=== PATIENT | female | born 1995 | race Caucasian/White ===

== ENCOUNTER → 2023-07-09 | Outpatient (CLI) | payer OTHER | LOC: LAB SHORT 13:41 → LAB 13:41 | DX: Z34.03 Encounter for supervision of normal first pregnancy, third trimester (principal) | CPT/HCPCS: 87081; 87150 ==

== ENCOUNTER 2023-08-05 13:09 | Inpatient (IN) | payer OTHER ==
[2023-08-05] VITALS (14 sets, daily range): BP systolic 117–150; BP diastolic 70–93
[~2023-08-05] VITALS: Ht 167.6 cm; Wt 106.8 kg
[2023-08-05 13:49] LABS: BASOPHILS ABSOLUTE AUTO 0.03 K/mm3 (0.00-0.23); BASOPHILS PERCENT AUTO 0 % (0-2); EOSINOPHILS ABSOLUTE AUTO 0.04 K/mm3 (0.00-0.68); EOSINOPHILS PERCENT AUTO 0 % (0-6); Hematocrit 32.1 % (33.0-51.0); Hemoglobin 10.9 g/dL (11.5-16.0); IMMATURE GRAN ABSOLUTE AUTO 0.04 K/mm3 (0.00-0.10); IMMATURE GRAN PERCENT AUTO 0 % (0-1); LYMPHOCYTES ABSOLUTE AUTO 1.58 K/mm3 (0.84-5.20); LYMPHOCYTES PERCENT AUTO 13 % (21-46); MONOCYTES ABSOLUTE AUTO 0.69 K/mm3 (0.16-1.47); MONOCYTES PERCENT AUTO 6 % (4-13); Mean Corpuscular HGB 26.7 pg (26.0-34.0); Mean Corpuscular Volume 79 fL (80-100); Mean Platelet Volume 11.8 fL (9.1-12.4); NEUTROPHILS ABSOLUTE AUTO 9.61 K/mm3 (1.96-9.15); NEUTROPHILS PERCENT AUTO 80 % (41-73); Platelet Count 302 K/mm3 (150-400); RDW Coefficient Variation 14.6 % (11.7-14.2); RDW Standard Deviation 41.8 fL (35.1-46.3); Red Blood Cell Count 4.09 M/mm3 (3.80-5.20); White Blood Cell Count 11.99 K/mm3 (4.00-11.30)
[2023-08-05] MEDS ORDERED: FAMO20 PO (14:29)
[2023-08-06] VITALS (41 sets, daily range): BP systolic 118–158; BP diastolic 56–96
[2023-08-07 01:01] VITALS: BP 123/66
[2023-08-07 05:35] VITALS: BP 127/77
[2023-08-07 08:08] VITALS: BP 129/62
[2023-08-07 12:50] VITALS: BP 130/77
[2023-08-07 16:39] VITALS: BP 125/72
[2023-08-07] MEDS ORDERED: DOCU100 PO (17:11)
[2023-08-07] MEDS ORDERED: IBU800 M1 PO (17:11)
[2023-08-07] MEDS ORDERED: ACET500 PO (17:11)
[2023-08-07] MEDS ORDERED: MIRALAX17 GM PO (17:12)
[2023-08-07] MEDS ORDERED: LANOLIN40 GM TOP (17:12)
[2023-08-07] MEDS ORDERED: PRENATAL TABLE1 EAC9 PO (17:12)
--- NOTE | 2023-08-07 18:22 | NUR ---
Printed d/c instructions reviewed by pt, verbalized understanding. Denies additional questions/concerns at this time. Will prepare for d/c home pending nb lab results.
[2023-08-07 18:57] VITALS: BP 130/75
--- NOTE | 2023-08-07 19:33 | NUR ---
DC NOTE PT CARING FOR SELF AND NB APPROPRIATLY. VVS AND PAIN CONTROLLED WITH ORAL MEDICATION. DC TEACHING DONE ON PREVIOUS SHIFT AND PT READY TO DC WITH SO AND NB. PT AMBULATED OFF UNIT INDIPENDENTLY WITH FAMILY.
== END 2023-08-07 19:15 | disposition home or self-care (01) | DRG 768 ==
LOC: OBS 13:09 → BC 13:09 → OBS 13:36 → BC 13:37
PROVIDERS: ADMIT Family Medicine
PROC: 3E033VJ Introduction of Other Hormone into Peripheral Vein, Percutaneous Approach (ICD-10-PCS; 2023-08-05)
PROC: 3E0P7VZ Introduction of Hormone into Female Reproductive, Via Natural or Artificial Opening (ICD-10-PCS; 2023-08-05)
PROC: 10E0XZZ Delivery of Products of Conception, External Approach (ICD-10-PCS; principal; 2023-08-06)
PROC: 0DQR0ZZ Repair Anal Sphincter, Open Approach (ICD-10-PCS; 2023-08-06)
PROC: 10907ZC Drainage of Amniotic Fluid, Therapeutic from Products of Conception, Via Natural or Artificial Opening (ICD-10-PCS; 2023-08-06)
DX: O99.62 Diseases of the digestive system complicating childbirth (principal); Z37.0 Single live birth; K21.9 Gastro-esophageal reflux disease without esophagitis; Z3A.39 39 weeks gestation of pregnancy; O70.21 Third degree perineal laceration during delivery, IIIa; O26.893 Other specified pregnancy related conditions, third trimester; L29.9 Pruritus, unspecified; O99.52 Diseases of the respiratory system complicating childbirth; J30.2 Other seasonal allergic rhinitis
CPT/HCPCS: 36415; 85025; 86850; 86900; 86901; A9270; J1885; J2590; J3010; J7120

== ENCOUNTER → 2024-10-10 | Outpatient (CLI) | payer OTHER ==
[~2024-10-10] MED LIST: ACET500 PO; DOCU100 PO; FAMO20 PO; IBU800 M1 PO; LANOLIN40 GM TOP; MIRALAX17 GM PO; PRENATAL TABLE1 EAC9 PO
[2024-10-10 13:52] LABS: Source, Urine Clean Catch
[2024-10-10 16:29] LABS: Amorphous Heavy (0-Heavy); Bacteria Mod /hpf; Red Blood Cells, Urine 0-2 /hpf (0-2); Squamous Epithelial Cells Few /hpf (Few); White Blood Cells, Urine 0-2 /hpf (0-5)
== END | disposition home or self-care (01) ==
LOC: LAB 13:50 → LAB SHORT 13:50
PROVIDERS: Family Medicine
DX: Z34.81 Encounter for supervision of other normal pregnancy, first trimester (principal)
CPT/HCPCS: 81015; 87086

== ENCOUNTER → 2025-04-30 | Outpatient (CLI) | payer OTHER | LOC: LAB SHORT 18:04 → LAB 18:04 | DX: Z34.93 Encounter for supervision of normal pregnancy, unspecified, third trimester (principal) | CPT/HCPCS: 87081; 87150 ==

== ENCOUNTER 2025-05-24 12:43 | Inpatient (IN) | payer OTHER ==
[~2025-05-24] VITALS: Ht 167.6 cm; Wt 106.8 kg
[2025-05-24] VITALS (7 sets, daily range): BP systolic 112–129; BP diastolic 60–76
[2025-05-24] MEDS ORDERED: Oxytocin 10 Unit / ML Vial IM PRN ×2 (13:20→13:35)
[2025-05-24] MEDS ORDERED: Carboprost Tromethamine 250 MCG/ML 1ML Amp IM PRN ×2 (13:20→13:35)
[2025-05-24] MEDS ORDERED: Methylergonovine Maleate 0.2MG / ML 1ML Amp IM PRN ×2 (13:20→13:35)
[2025-05-24] MEDS ORDERED: OXYTOCIN/RINGER'S LACTATE 500 ML IV PRN ×2 (13:20→13:35)
[2025-05-24] MEDS ORDERED: Ondansetron HCl 2 MG / ML 2ML Vial IV PRN ×2 (13:20→13:35)
[2025-05-24] MEDS ORDERED: ePHEDrine Sulfate 50 MG/ML 1ML Injection XX PRN ×2 (13:25→13:35)
[2025-05-24] MEDS ORDERED: FentaNYL 2mcg/ml-Bup 0.1% Epd 250 ML EPI PRN ×2 (13:25→13:35)
[2025-05-24] MEDS ORDERED: Tranexamic Acid 100 ML IV SCH (13:35)
[2025-05-24 13:51] LABS: BASOPHILS ABSOLUTE AUTO 0.03 K/mm3 (0.00-0.23); BASOPHILS PERCENT AUTO 0 % (0-2); EOSINOPHILS ABSOLUTE AUTO 0.04 K/mm3 (0.00-0.68); EOSINOPHILS PERCENT AUTO 0 % (0-6); Hematocrit 36.5 % (33.0-51.0); Hemoglobin 12.1 g/dL (11.5-16.0); IMMATURE GRAN ABSOLUTE AUTO 0.05 K/mm3 (0.00-0.10); IMMATURE GRAN PERCENT AUTO 0 % (0-1); LYMPHOCYTES ABSOLUTE AUTO 1.81 K/mm3 (0.84-5.20); LYMPHOCYTES PERCENT AUTO 15 % (21-46); MONOCYTES ABSOLUTE AUTO 0.74 K/mm3 (0.16-1.47); MONOCYTES PERCENT AUTO 6 % (4-13); Mean Corpuscular HGB Conc 33.2 g/dL (31.5-36.5); Mean Corpuscular Volume 81 fL (80-100); NEUTROPHILS ABSOLUTE AUTO 9.67 K/mm3 (1.96-9.15); NEUTROPHILS PERCENT AUTO 78 % (41-73); NRBC ABSOLUTE 0.00 K/mm3 (0.00-0.02); NRBC Auto 0.0 /100 WBC (0.0-0.2); Platelet Count 251 K/mm3 (150-400); RDW Coefficient Variation 14.2 % (11.7-14.2); RDW Standard Deviation 41.6 fL (35.1-46.3)
[2025-05-24] MEDS ORDERED: OXYTOCIN/RINGER'S LACTATE 500 ML IV SCH (20:10)
[2025-05-25] VITALS (34 sets, daily range): BP systolic 91–137; BP diastolic 50–91
[2025-05-25] MEDS ORDERED: FentaNYL Citrate 50 MCG/ML 2 ML Injection ONE (02:45)
[2025-05-25] MEDS ORDERED: Polyethylene Glycol 3350 17 gm PO PRN (10:05)
[2025-05-25] MEDS ORDERED: Witch Hazel/Glycerin PADS TOP PRN (10:05)
[2025-05-25] MEDS ORDERED: OXYTOCIN/RINGER'S LACTATE 500 ML IV PRN (10:10)
[2025-05-25] MEDS ORDERED: Rho(D) Immune Globulin 300 MCG / SYR IM ONE (10:10)
[2025-05-25] MEDS ORDERED: Benzocaine Topical Anesthetic Spray 60GM TOP PRN (10:10)
[2025-05-25] MEDS ORDERED: Ketorolac Tromethamine 30mg Vial IV PRN (10:10)
[2025-05-25] MEDS ORDERED: Methylergonovine Maleate 0.2MG / ML 1ML Amp IM PRN (10:15)
[2025-05-25] MEDS ORDERED: Rho(D) Immune Globulin 300 MCG / SYR IV ONE (18:00)
[2025-05-26 00:20] VITALS: BP 125/75
[2025-05-26 04:31] VITALS: BP 128/69
--- NOTE | 2025-05-26 05:04 | NUR ---
Assumed care at change of shift. Patient resting in bed with visitors present. Denies any pain or discomfort. Patient is and experienced parent and reports going well and no needs at the time of assuming care. At approx 0430 pt called and reported had been up nursingeach hour and she needed a little time to rest. Patient reports she believes he is transferring milk when nursing. RN assumed care of to allow parents to sleep at this time.
[2025-05-26 08:36] VITALS: BP 127/76
[2025-05-26] MEDS ORDERED: Prenatal Vit/FE Fumarate/FA 1 Tab PO SCH (09:00)
[2025-05-26] MEDS ORDERED: IBUP800 PO (10:47)
== END 2025-05-26 11:34 | disposition home or self-care (01) | DRG 807 ==
LOC: OBS 12:43 → BC 12:43 → OBS 13:23 → BC 13:27
PROVIDERS: Family Medicine; ADMIT Family Medicine
PROC: 4A1HXCZ Monitoring of Products of Conception, Cardiac Rate, External Approach (ICD-10-PCS; 2025-05-24)
PROC: 10E0XZZ Delivery of Products of Conception, External Approach (ICD-10-PCS; principal; 2025-05-25)
PROC: 0KQM0ZZ Repair Perineum Muscle, Open Approach (ICD-10-PCS; 2025-05-25)
PROC: 3E0234Z Introduction of Serum, Toxoid and Vaccine into Muscle, Percutaneous Approach (ICD-10-PCS; 2025-05-25)
DX: O42.12 Full-term premature rupture of membranes, onset of labor more than 24 hours following rupture (principal); Z37.0 Single live birth; Z3A.39 39 weeks gestation of pregnancy; O99.62 Diseases of the digestive system complicating childbirth; K21.9 Gastro-esophageal reflux disease without esophagitis; O26.893 Other specified pregnancy related conditions, third trimester; Z67.41 Type O blood, Rh negative; O70.1 Second degree perineal laceration during delivery; Z23 Encounter for immunization
CPT/HCPCS: 36415; 51702; 59025; 85025; 85460; 86850; 86900; 86901; 90707; 99214; A9270; J1885; J2590; J2791; J3010; J7120

== ENCOUNTER → 2025-08-27 | Outpatient (CLI) | payer OTHER ==
[~2025-08-27] MED LIST changes: +IBUP800 PO
== END ==
LOC: LAB SHORT 14:28 → LAB 14:28
PROVIDERS: Family Medicine
DX: Z01.419 Encounter for gynecological examination (general) (routine) without abnormal findings (principal)
CPT/HCPCS: 87624; G0145